=== PATIENT | male | born 1975 | race Two or more races ===

== ENCOUNTER 2020-08-23 08:04 | Outpatient (REF) | payer OTHER, SELFPAY | END 2020-08-23 08:05 | disposition home or self-care (01) | LOC: HO.LAB 08:04 | PROVIDERS: Visit Provider Internal Medicine | DX: Z20.828 Contact with and (suspected) exposure to other viral communicable diseases (principal) | CPT/HCPCS: C9803; U0003 ==

== ENCOUNTER 2021-10-25 08:05 | Outpatient (REF) | payer OTHER, SELFPAY ==
[2021-10-25 09:23] LABS: Binax Internal Control QC Valid; Binax Now Covid-19 Ag Negative (Negative)
== END 2021-10-25 08:06 | disposition home or self-care (01) ==
LOC: HO.LAB 08:05
PROVIDERS: Visit Provider Internal Medicine
DX: Z20.822 Contact with and (suspected) exposure to COVID-19 (principal)
CPT/HCPCS: 36415; C9803

== ENCOUNTER 2022-12-19 10:30 | Outpatient (REF) | payer OTHER, SELFPAY ==
[2022-12-19 10:43] LABS: MANUAL DIFF FLAG NO
[2022-12-19 12:28] LABS: Basophils Absolute Auto 0.1 X10*3/uL (0.0-0.2); Basophils Percent Auto 1.1 % (0-2); Eosinophils Absolute Auto 0.1 X10*3/uL (0.0-0.4); Eosinophils Percent Auto 1.1 % (0-4); Hematocrit 50.2 % (42.0-52.0); Hemoglobin 15.7 g/dl (14.0-18.0); Imm Gran Abs Auto 0.01 X10*3/uL (0.00-0.03); Imm Gran Pct Auto 0.2 % (0.0-0.4); Lymphocytes Absolute Auto 2.8 X10*3/uL (1.2-4.9); Lymphocytes Percent Auto 43.8 % (20-40); Mean Corpuscular HGB Conc 31.3 g/dl (31.0-36.0); Mean Corpuscular Hemoglobin 24.8 pg (27.0-33.0); Mean Corpuscular Volume 79.3 fL (80.0-98.0); Monocytes Absolute Auto 0.5 X10*3/uL (0.1-1.2); Monocytes Percent Auto 7.8 % (2-11); Neutrophils Absolute Auto 2.9 x10*3/uL (2.0-8.3); Platelet Count 217 X10*3/uL (160-400); Red Blood Count 6.33 X10*6/uL (4.60-5.80); Red Cell Distribution Width 13.5 % (11.0-16.0); White Blood Count 6.3 X10*3/uL (4.8-10.8)
[2022-12-19 12:57] LABS: Alanine Aminotransferase 75 U/L (0-40); Albumin Level 4.3 g/dL (3.5-5.0); Alkaline Phosphatase 87 U/L (39-117); Anion Gap 15 (12-20); Aspartate Amino Transferase 36 U/L (5-37); Bilirubin Total 1.3 mg/dL (0.0-1.0); Blood Urea Nitrogen 12 mg/dL (9-16); Carbon Dioxide 28 mmol/L (22-29); Chloride 106 mmol/L (96-108); Cholesterol 239 mg/dL; Estimated Glomerular Filt Rate > 60; Glucose Fasting 91 mg/dL (60-99); HDL Cholesterol 35 mg/dL; LDL Cholesterol Calculated 171 mg/dl; Potassium 4.6 mmol/L (3.3-5.1); Sodium 144 mmol/L (135-145); Total Protein 6.9 g/dL (6.5-8.0); Triglycerides 169 mg/dL
[2022-12-19 13:01] LABS: Thyroid Stimulating Hormone 0.83 uIU/mL (0.32-4.0)
== END 2022-12-19 10:31 | disposition home or self-care (01) ==
LOC: HO.LAB 10:30
PROVIDERS: PCP Internal Medicine; Visit Provider Internal Medicine
DX: Z00.00 Encounter for general adult medical examination without abnormal findings (principal)
CPT/HCPCS: 36415; 80053; 80061; 84439; 84443; 85025

== ENCOUNTER → 2024-02-23 14:03 | Outpatient (REF) | payer OTHER, SELFPAY | LOC: HO.SL 14:03 | PROVIDERS: PCP Internal Medicine; Visit Provider Internal Medicine | DX: G47.33 Obstructive sleep apnea (adult) (pediatric) (principal) | CPT/HCPCS: 95806 ==

== ENCOUNTER → 2024-02-23 19:00 | Outpatient (BNV) | payer OTHER, SELFPAY | PROVIDERS: PCP Internal Medicine; Visit Provider Internal Medicine | DX: G47.33 Obstructive sleep apnea (adult) (pediatric) (principal) | CPT/HCPCS: 95806 ==

== ENCOUNTER → 2024-02-24 08:25 | Outpatient (REF) | payer OTHER, SELFPAY ==
--- NOTE | 2024-02-24 08:27 | CA_ITS ---
Acquisition Time: 2024-02-24 08:48:04 Total Exercise Time: 00:09:30 Test Indications: ABN. EKG Medications: NONE Protocol: VANE Max HR: 153 BPM 87% of Pred: 174 BPM Max BP: 194/058 mmHG Max Work Load: 10.9 METS Exercise stress test exercise 9 min 30 sec of Vane protocol achieving 87% MPHR, without anginal symptoms. with isolated PVCs and ventricular cuplet, with normotensive response to exercise, with baseline of t wave inversion lead 3, aVF, and V6 and T wave inversion in V5 in late recovery. Test reviewed with Dr. Dalton. Referred By: Zaid Cruz Overread By: Tiffanie Gonzalez
[2024-02-24 09:28] LABS: MANUAL DIFF FLAG NO
[2024-02-24 10:05] LABS: Basophils Absolute Auto 0.1 X10*3/uL (0.0-0.2); Eosinophils Absolute Auto 0.1 X10*3/uL (0.0-0.4); Eosinophils Percent Auto 1.8 % (0-4); Hemoglobin 14.6 g/dl (14.0-18.0); Imm Gran Abs Auto 0.01 X10*3/uL (0.00-0.03); Imm Gran Pct Auto 0.2 % (0.0-0.4); Lymphocytes Absolute Auto 2.7 X10*3/uL (1.2-4.9); Lymphocytes Percent Auto 54.3 % (20-40); Mean Corpuscular HGB Conc 31.7 g/dl (31.0-36.0); Mean Corpuscular Hemoglobin 25.2 pg (27.0-33.0); Mean Corpuscular Volume 79.4 fL (80.0-98.0); Mean Platelet Volume 10.7 fL (9.4-12.4); Monocytes Absolute Auto 0.5 X10*3/uL (0.1-1.2); Monocytes Percent Auto 9.1 % (2-11); Neutrophils Absolute Auto 1.7 x10*3/uL (2.0-8.3); Neutrophils Percent Auto 33.6 % (45-73); Platelet Count 184 X10*3/uL (160-400); Red Blood Count 5.79 X10*6/uL (4.60-5.80); Red Cell Distribution Width 14.2 % (11.0-16.0)
[2024-02-24 10:37] LABS: Alanine Aminotransferase 164 U/L (0-40); Albumin Level 4.2 g/dL (3.5-5.0); Alkaline Phosphatase 70 U/L (39-117); Anion Gap 16 (12-20); Aspartate Amino Transferase 76 U/L (5-37); Bilirubin Total 0.8 mg/dL (0.0-1.0); Blood Urea Nitrogen 15 mg/dL (9-16); C Reactive Protein 0.46 mg/dL (< or = 0.50); Calcium 9.3 mg/dL (8.4-10.2); Carbon Dioxide 25 mmol/L (22-29); Chloride 106 mmol/L (96-108); Cholesterol 172 mg/dL (<200); Estimated Glomerular Filt Rate > 60; Glucose Random 90 mg/dL (60-115); HDL Cholesterol 34 mg/dL (>40); LDL Cholesterol Calculated 115 mg/dL (<100); Sodium 143 mmol/L (135-145); Total Protein 7.3 g/dL (6.5-8.0); Triglycerides 116 mg/dL (<150)
[2024-02-24 11:01] LABS: Thyroid Stimulating Hormone 0.65 uIU/mL (0.32-4.0)
[2024-02-25 17:53] LABS: Lyme Abs Screen <0.90 index
== END ==
LOC: HO.CARD 08:25
PROVIDERS: PCP Internal Medicine; Visit Provider Internal Medicine
DX: Z13.6 Encounter for screening for cardiovascular disorders (principal); T14.8XXA Other injury of unspecified body region, initial encounter; W57.XXXA Bitten or stung by nonvenomous insect and other nonvenomous arthropods, initial encounter; R94.31 Abnormal electrocardiogram [ECG] [EKG]
CPT/HCPCS: 36415; 80053; 80061; 84443; 85025; 86140; 86617; 86618; 93017

== ENCOUNTER → 2024-02-24 08:27 | Outpatient (BNV) | payer OTHER, SELFPAY | PROVIDERS: PCP Internal Medicine; Visit Provider Nurse Practitioner | DX: R94.31 Abnormal electrocardiogram [ECG] [EKG] (principal) | CPT/HCPCS: 93016; 93018 ==

== ENCOUNTER 2024-07-22 07:14 | Outpatient (AMB) | payer OTHER, SELFPAY ==
--- NOTE | 2024-07-22 07:18 | A.OFFVIS_ITS ---
Vital Signs 07/22/24 07:39 Height 5 ft 11 in Weight 253 lb BMI 35.3 BP 147/86 H Blood Pressure Location Lt brachial Position Sitting Pulse 92 Intake Visit Reasons: pre colonoscopy Intake Note: Patient new consult for 1st pre colonoscopy screening. Patient cc: acid reflex with burning sensation and nauseas in the morning after wash his teeth. Denies any other GI issues. Entry Engineer Required: No Accompanied by: Self / Same As Patient Allergies shellfish derived [SHELLFISH DERIVED] Allergy (Unknown, Verified 07/22/24 07:19) HIVES, ITCHY Medication List - Last Reconciled 07/22/24 by Tong Moe MD No Known Home Meds HPI HPI pre colonoscopy: Details: Initial GI clinic visit for this 48 YM with hypertension, hyperlipidemia, low back pain referred by Dr. Duncan Cruz for evaluation of elevated LFTs, GERD and to schedule a colonoscopy for colorectal cancer screening TODAY'S VISIT: Notes intermittent heartburn in the afternoon and at bedtime - no medications for heartburn. He notes frequent heartburn in the past for several years and symptoms have improved over the past several months Notes some nausea in the am when he brushes his teeth Patient denies symptoms of dysphagia, vomiting, change in appetite or weight. Denies recent change in bowel habits, constipation, diarrhea, black stools or rectal bleeding. Patient denies major cardiac or pulmonary problems, and admits to obstructive sleep apnea (he was on a CPAP machine in the past) Denies having any surgeries in the past. Denies being on chronic anticoagulation. 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 PAST [facility] Reviewed - elevated transaminases IMAGING STUDIES: None in [employer] [facility] Family History (Updated 07/22/24 @ 07:51 by Rachell Hartmann) Mother HTN (hypertension) Diabetes Malignant melanoma of breast Social History (Updated 07/22/24 @ 07:34 by Rachell Hartmann) Household Members: Family Alcohol intake: never Patient Tobacco Use Status: Never used Tobacco Review of Systems Const Denies fever(s), Denies headache(s) and Denies weight loss Eyes Denies eye discharge and Denies irritation ENT Reports Normal hearing present, Denies dysphagia, Denies dizziness and Denies headache(s) Card Denies chest pain, Denies leg edema and Denies dyspnea on exertion Resp Denies cough, Denies dyspnea on exertion and Denies wheezing GI Denies abdominal pain, Reports bloating, Denies change in bowel habits, Denies dysphagia, Reports heartburn and Reports nausea (in the am) Denies dysuria Musc Denies back pain and Denies arthralgias Skin/Breast Denies pruritus, Denies rash and Denies jaundice Neuro Reports Normal hearing present, Denies Abnormal speech present, Denies dizziness, Denies headache(s) and Denies seizure-like activity Psych Denies anxiety, Denies depression and Denies panic attacks Endo Denies cold intolerance, Denies flushing and Denies heat intolerance Cortes/Lymph Denies easy bleeding and Denies easy bruising Aller/Immun Denies wheezing Physical Exam Vital Signs: Last Vital Signs Pulse 92 07/22/24 07:39 BP 147/86 H 07/22/24 07:39 BMI result Body Mass Index 35.3 Const General: healthy appearing and no acute distress Nutritional Appearance: obese Orientation/consciousness: patient oriented x3 Limitations: no limitations HEENT Head: Yes normal to inspection Ears: hearing grossly normal bilaterally Mouth: Normal oral and palatal mucosa present Eyes Sclerae: sclerae normal Pupils: Equal, round and reactive pupils present Neck Neck: Yes normal visual inspection Chest Chest palpation & inspection: normal inspection of the chest Resp Effort & Inspection: normal respiratory effort Auscultation: clear to auscultation bilaterally Cardio Palpation: normal PMI Rate: regular rate Rhythm: regular rhythm Heart sounds: S1 normal heart sound present, S2 normal heart sound present and no murmurs GI Palpation (GI): Soft to palpation, nontender and No hepatosplenomegaly present Auscultation: normal bowel sounds Rectal Exam - Male: Yes deferred Skin General skin exam: no rashes or lesions noted Neuro General: patient oriented x3, gait normal and moves all extremities Cranial nerves: Yes Equal, round and reactive pupils present and Yes Normal hearing present Speech: No Abnormal speech present Psych Appearance: grossly normal Mental Status: mental status grossly normal Assessment & Plan Assessment & Plan (1) Colon cancer screening: Comment: schedule colonoscopy Code(s): Z12.11 - Encounter for screening for malignant neoplasm of colon Category: Medical (2) Elevated LFTs: Comment: Likely due to fatty liver Code(s): R79.89 - Other specified abnormal findings of blood chemistry Category: Medical Plan Initial GI clinic visit for this 48 YM with hypertension, hyperlipidemia, low back pain referred by Dr. Duncan Cruz for evaluation of elevated LFTs, GERD and to schedule a colonoscopy for colorectal cancer screening Patient denies major cardiac or pulmonary problems, and admits to obstructive sleep apnea (he was on a CPAP machine in the past) Denies having any surgeries in the past. Denies being on chronic anticoagulation. Takes Alleve occasionally fot toothache Patient denies known family history of colon polyps, colon cancer or other GI malignancies. Pt advised to follow antireflux pre-cautions and work on loosing weight. Start Famotidine 20 mg twice daily for GERD Repeat liver panel, Hepatitis serologies and abdominal US for FU of elevated LFTs He will be scheduled for an upper endoscopy (GERD and screen for Juarez's) and Colonoscopy (screening) Both procedures and potential complication including bleeding, perforation, reaction to anesthetics and aspiration were reviewed with the patient. Orders: Orders US abdomen complete Today R7. - Other specified abnormal findings of blood chemistry Complete Blood Count no Diff Today R7 - Other specified abnormal findings of blood chemistry Transglutaminase IgA Today R7. - Other specified abnormal findings of blood chemistry Transglutaminase Ab IgG Today R7. - Other specified abnormal findings of blood chemistry Hepatitis A IgG Today R7. - Other specified abnormal findings of blood chemistry Vitamin D 25-OH Total Today R7. - Other specified abnormal findings of blood chemistry Vitamin B12 and Folate Today R7. - Other specified abnormal findings of blood chemistry Liver Panel Today - Other specified abnormal findings of blood chemistry Hepatitis C Antibody Today . - Other specified abnormal findings of blood chemistry Hepatitis B Surface Antigen Today R7. - Other specified abnormal findings of blood chemistry Hepatitis B Surface Antibody Today R7. - Other specified abnormal findings of blood chemistry Hepatitis B Core Antibody Today R7. - Other specified abnormal findings of blood chemistry Medications: New bisacodyl (Dulcolax (bisacodyl)) Take 4 tablets at 12 pm the day before colonoscopy appointment 20 mg (4 x 5 mg) PO ONCE 4 tabs 0RF colon prep 1 day polyethylene glycol 3350 (Miralax) Mix Miralax with 64 oz(8 cups) of Crystal light. Take 2 tablets of Dulcolax qt 12 pm. Wait to have your 1st bowel movement, then begin drinking Miralax. Drink a glass of Miralax every 10-15 minutes until you are finished. You will drink at least another 4 cups of clear liquid of your choice over the next 2 hours. Please drink as many clear liquids as possible You may have clear liquids up to four hours before your procedure 17 grams PO DAILY 238 grams 0RF 1 day famotidine 20 mg PO BID 180 tabs 1RF 90 days K21.9 - Gastro-esophageal reflux disease without esophagitis Coding Level of Care Code New Pt Level 4 (05603) Diagnoses Colon cancer screening Z12.11 Elevated LFTs R79.89 Time Spent (min) 25
[2024-07-22 07:39] VITALS: BP 147/86; PULSE 92; BMI 35.3
== END 2024-07-22 08:13 | disposition home or self-care (01) ==
PROVIDERS: PCP Internal Medicine; Visit Provider Internal Medicine Gastroenterology
DX: Z12.11 Encounter for screening for malignant neoplasm of colon (principal); R79.89 Other specified abnormal findings of blood chemistry; Z01.818 Encounter for other preprocedural examination
CPT/HCPCS: 99204

== ENCOUNTER 2024-07-22 07:14 | Outpatient (REF) | payer OTHER, SELFPAY ==
[2024-07-22 08:47] LABS: Hematocrit 46.9 % (42.0-52.0); Hemoglobin 15.2 g/dl (14.0-18.0); Mean Corpuscular HGB Conc 32.4 g/dl (31.0-36.0); Mean Corpuscular Hemoglobin 25.4 pg (27.0-33.0); Mean Corpuscular Volume 78.4 fL (80.0-98.0); Mean Platelet Volume 10.7 fL (9.4-12.4); Platelet Count 181 X10*3/uL (160-400); Red Blood Count 5.98 X10*6/uL (4.60-5.80); Red Cell Distribution Width 13.9 % (11.0-16.0); White Blood Count 5.5 X10*3/uL (4.8-10.8)
[2024-07-22 09:25] LABS: Alanine Aminotransferase 90 U/L (0-40); Albumin Level 4.2 g/dL (3.5-5.0); Alkaline Phosphatase 83 U/L (39-117); Aspartate Amino Transferase 41 U/L (5-37); Bilirubin Direct 0.3 mg/dL (0.0-0.5); Total Protein 7.3 g/dL (6.5-8.0)
[2024-07-22 09:36] LABS: Hepatitis A Antibody IgG REACTIVE (Nonreactive); ~Hepatitis A Antibody IgG 11.01 S/CO (0.00-0.99)
[2024-07-22 09:40] LABS: HBS Num1 397.83 mIU/mL (0-7.99); HBsAGNum1 0.34 S/CO (0.00-0.99); Hepatitis B Core Antibody Nonreactive (Nonreactive); Hepatitis B Surface Antigen Negative (Negative); ~HepC Num1 0.12 S/CO (0.00-0.79); ~Hepatitis B Surface Antibody REACTIVE (Nonreactive); ~Hepatitis C Antibody Nonreactive (Nonreactive)
[2024-07-22 09:42] LABS: Vitamin D 25-OH Total 28.3 ng/mL (>30)
[2024-07-22 09:52] LABS: Folate 9.3 ng/mL (> or = 4.0); Vitamin B12 426 pg/mL (200-900)
[2024-07-25 17:18] LABS: Transglutaminase Ab IgG <1.0 U/mL; Transglutaminase IgA <1.0 U/mL
== END 2024-07-22 07:15 | disposition home or self-care (01) ==
LOC: HO.LAB 07:14
PROVIDERS: PCP Internal Medicine; Visit Provider Internal Medicine Gastroenterology
DX: R79.89 Other specified abnormal findings of blood chemistry (principal)
CPT/HCPCS: 36415; 80076; 82306; 82607; 82746; 85027; 86364; 86704; 86706; 86708; 86803; 87340

== ENCOUNTER 2024-08-04 08:11 | Outpatient (REF) | payer OTHER, SELFPAY ==
--- NOTE | ~2024-08-04 | US_ITS ---
EXAMINATION: US ABDOMEN COMPLETE CLINICAL INFORMATION: Other specified abnormal findings of blood chemistry. Evaluate for fatty liver. COMPARISON: None available. TECHNIQUE: Real-time imaging of the abdominal viscera. FINDINGS: PANCREAS: The visualized portions of the pancreas are unremarkable but a large portion of the gland is obscured by bowel gas. ABDOMINAL AORTA: No aneurysm seen but the mid aorta is obscured by bowel gas. INFERIOR VENA CAVA: Visualized portions are normal. LIVER: The liver is enlarged measuring over 20 cm in greatest length with increased echogenicity consistent with hepatic steatosis. The liver contour is normal. No focal hepatic lesion. There is no intrahepatic biliary duct dilatation seen. GALLBLADDER: Normal. The gallbladder is physiologically distended without evidence of stones, sludge, polyps, wall thickening or pericholecystic fluid. COMMON BILE DUCT: Normal in caliber measuring 0.4 cm in diameter. RIGHT KIDNEY: Normal. No hydronephrosis. No renal calculi or focal parenchymal lesions. The kidney measures 11.1 cm in maximum dimension. LEFT KIDNEY: Normal. No hydronephrosis. No renal calculi or focal parenchymal lesions. The kidney measures 11.2 cm in maximum dimension. SPLEEN: Normal. The spleen measures 9.7 cm in maximum dimension. FREE FLUID: None. US/US abdomen complete IMPRESSION: Enlarged fatty liver. Electronically signed by: Surya Reyes MD 10/01/2024 12:24 PM PRAVIN
== END 2024-08-04 08:12 | disposition home or self-care (01) ==
LOC: HO.US 08:11
PROVIDERS: PCP Internal Medicine; Visit Provider Internal Medicine Gastroenterology
DX: R79.89 Other specified abnormal findings of blood chemistry (principal)
CPT/HCPCS: 76700

== ENCOUNTER 2024-12-19 07:38 | Day surgery (SDC) | payer OTHER, SELFPAY ==
--- NOTE | 2024-12-16 10:20 | HO.ANESPROP2 ---
Documented by User: Dorcas Roblero NP 12/16/24 10:20 HPI - Anesthesia Eval Consult details Narrative: 49yo M for Upper Endoscopy and Colonoscopy PMF Active Problems Active Problems: All Active Problems Colon cancer screening (Acute) Elevated LFTs (Acute) Chronic kidney disease, stage 1 (Acute) Obstructive sleep apnea (Acute) Low back pain (Acute) Tenosynovitis of left hand (Acute) Tenosynovitis of right hand (Acute) Hypercholesterolemia (Acute) Hypertension (Acute) Family History Family History Mother HTN (hypertension) Diabetes Malignant melanoma of breast Social History Social History Household Members: Family Alcohol intake: never Patient Tobacco Use Status: Never used Tobacco Meds Allergies Allergy/AdvReac Type Severity Reaction Status Date / Time shellfish derived Allergy Unknown HIVES, Verified 12/19/24 08:20 [SHELLFISH DERIVED] ITCHY Assessment and Plan Assessment Anesthesia Assessment: Chart Reviewed Documented by User: Kristi Vidal MD 12/19/24 08:57 [facility] Family History Family History Mother HTN (hypertension) Diabetes Malignant melanoma of breast Surgical History History of Problems with Anesthesia: No Social History Social History Household Members: Family Alcohol intake: never Patient Tobacco Use Status: Never used Tobacco Meds Allergies Allergy/AdvReac Type Severity Reaction Status Date / Time shellfish derived Allergy Unknown HIVES, Verified 12/19/24 08:20 [SHELLFISH DERIVED] ITCHY Exam Airway Mallampati Class: III (full garcia) TM Dist: >3cm Neck ROM: Full Loose/Missing/Broken Teeth: Yes and Upper Heart: RRR Lungs: CTA Assessment and Plan Assessment Anesthesia Assessment: Anesthesia Plan Discussed Final Anesthetic Review History of Problems with Anesthesia: No NPO: Yes ASA Class: III Final Preanesthetic Review: Meds/Allgs Chart Reviewed, Consent Obtained/Reviewed and Anes Risks/Benef Reviewed Patient Risk: Intermediate Procedure Risk: Intermediate Anesthetic Plan Anesthetic Plan: MAC: Disposition: Standard PACU
--- NOTE | 2024-12-19 08:35 | MHC.SHP ---
Pre-Procedural Eval Section A - 24 Hr Update-Section A only Date of Service: 12/19/24 Section B - Complete if H&P > 30 days Chief Complaint: gerd,screening Relevant Family History (Specify if Yes): No Relevant Social History: None Present Medications: see Short Stay Collaborative assessment Medical History: Significant History (Hypercholesterolemia, hypertension, low back pain, obstructive sleep apnea) History of Previous Operations: No relevant previous surgery Allergies: Allergies Allergy/AdvReac Type Severity Reaction Status Date / Time shellfish derived Allergy Unknown HIVES, Verified 12/19/24 08:20 [SHELLFISH DERIVED] ITCHY Review of Systems Sugical H&P ROS: Negative: Constitution, Cardiovascular, Respiratory and Gastrointestinal Exam Surgical H&P Exam: Normal: Heart, Normal: Lungs, Normal: Extremities and Normal: Abdomen Plan Diagnosis/Plan: Unchanged I have reviewed the history and physical and performed a pertinent physical examination on my patient. No changes have occurred unless specified. Time Spent With Patient Time: Total time managing care of this patient today ____ minutes.
[2024-12-19 08:37] VITALS: BP 136/95; PULSE 92; RESP 16; TEMP 36.6; O2SAT 95; BMI 37.9
--- NOTE | 2024-12-19 08:51 | P.OPN-COLO_ITS ---
Colonoscopy Operative Note Operative Note Date of Service: 12/19/24 Narrative: FLEXIBLE TRANSORAL UPPER GASTROINTESTINAL ENDOSCOPY WITH BIOPSIES AND COLONOSCOPY TILL CECUM WITH SNARE POLYPECTOMY Pre-op diagnosis: Colon cancer screening, GERD Post-op diagnosis: Esophagitis, Gastritis, Hiatal hernia, Colon Polyps, Diverticulosis, hemorrhoids Endoscopist:? Tong Moe MD Anesthesia:?MAC UPPER ENDOSCOPY Consent: Indications for the procedure and potential complications of bleeding, perforation, reaction to medications and missed diagnosis were discussed with the patient and informed consent was obtained. Instrument: Olympus GIF H 190 mid size upper endoscope Monitoring: Vital signs and clinical assessment, continuous EKG monitoring, Pulse oximetry, Carbon Dioxide monitoring and blood pressure monitoring were done throughout the procedure. Procedure: The patient was placed in the left lateral decubitis position and pre-procedure medications were administered and a bite block was placed. The endoscope was inserted into the mouth and advanced under direct vision to the third part of duodenum. A careful inspection was made as the upper endoscope was withdrawn including a retroflexed examination of the proximal stomach; Findings and interventions are described below. Findings: Larynx: Normal Esophagus: GE junction at 35 cms, hiatal hernia 35 to 40 cms. Multiple chronic appearing erosions at the GE junction (LA Grade B). Stomach: Moderate diffuse gastric erythema - biopsies were obtained from the antrum. Grade 3 flap valve on retroflexed examination of the cardia. Duodenum: Normal bulb and descending duodenum Intervention: Biopsies as noted above COLONOSCOPY PROCEDURE NOTE Instrument: Olympus CF H 190 L variable stiffness adult colonoscope Monitoring: Vital signs and clinical assessment, intermittent blood pressure monitoring, continuous EKG monitoring, Pulse oximetry and Carbon Dioxide monitoring were done throughout the procedure. Please see anesthesia flowsheet. Colon withdrawl time was 12 minutes. Procedure: The patient was placed in the left lateral decubitis position and pre-procedure medications were administered. After a digital rectal examination of the ano-rectum, the video colonoscope was inserted into the rectum and advanced through the colon to the cecum. The colonoscope was slowly withdrawn in a retrograde panoramic fashion and the colon mucosa was carefully examined including a retroflexed view of the rectum. Findings and interventions are described below. Procedure Difficulty: without difficulty Findings: Terminal Ileum: Not evaluated Cecum: Normal Ascending Colon: A 5-6 mm sessile polyp in the proximal ascending colon - removed with a cold snare Transverse Colon: A 7-8 mm sessile polyp - removed with cold snare. A 10-12 mm sessile polyp - removed with hot snare Descending Colon: Normal Sigmoid Colon: A 7-8 mm sessile polyp - removed with a hot snare. Moderate diverticulosis Rectum: Normal Ano-rectum: Moderate internal hemorrhoids Colon preparation: Good after some irrigation. [place] Bowel Preparation Scale Right colon; 2 Transverse colon: 2 Left colon; 2 (0 = Unprepared colon segment with mucosa not seen due to solid stool that cannot be cleared. 1 = Portion of mucosa of the colon segment seen, but other areas of the colon segment not well seen due to staining, residual stool and/or opaque liquid. 2 = Minor amount of residual staining, small fragments of stool and/or opaque liquid, but mucosa of colon segment seen well. 3 = Entire mucosa of colon segment seen well with no residual staining, small fragments of stool or opaque liquid) Impression and Post Procedure Diagnosis: Endoscopy Findings: ESOPHAGUS: Hiatal hernia, Erosive esophagitis (LA Grade B). STOMACH: Moderate diffuse gastritis DUODENUM: Normal Colonoscopy Findings: Four small to medium sized polyps were removed Moderate diverticulosis seen in the left colon Moderate hemorrhoids on retroflexed exam. Plan: Pt has a FU appointment on 01/12/[address] Moe Repeat EGD in 4 - 6 months to confirm esophagitis has healed and repeat colonoscopy in 3-5 years if polyps are adenomatous and 10 year if polyps are hyperplastic. Above findings were reviewed with the patient and relevant handouts were given and the discharge area. BIOPSIES SHOWED: A. Stomach, antrum, biopsy: Gastric antral mucosa within normal limits; negative for Helicobacter pylori, intestinal metaplasia and dysplasia. B. Colon, ascending, polypectomy: Tubular adenoma; negative for high-grade dysplasia. C. Colon, transverse, polypectomy x 2: Tubular adenoma (2); negative for high- grade dysplasia. D. Colon, sigmoid, polypectomy: Tubular adenoma; negative for high-grade dysplasia. Letter sent advising repeat EGD in 4-6 months and repeat colon in 3 years. Patient was placed on the colonoscopy recall list.
[2024-12-19 09:25] VITALS: BP 123/77; PULSE 96; RESP 18; TEMP 36.1; O2SAT 97
[2024-12-19 09:40] VITALS: BP 126/81; PULSE 100; RESP 18; O2SAT 97
[2024-12-19 09:47] VITALS: BP 116/82; PULSE 92; RESP 18; TEMP 36.6; O2SAT 97
== END 2024-12-19 10:21 | disposition home or self-care (01) ==
PROVIDERS: PCP Internal Medicine; Visit Provider Internal Medicine Gastroenterology
PROC: (CPT 45385; principal; 2024-12-19 08:30)
DX: Z12.11 Encounter for screening for malignant neoplasm of colon (principal); D12.2 Benign neoplasm of ascending colon; D12.3 Benign neoplasm of transverse colon; D12.5 Benign neoplasm of sigmoid colon; K57.30 Diverticulosis of large intestine without perforation or abscess without bleeding; K64.8 Other hemorrhoids; K21.9 Gastro-esophageal reflux disease without esophagitis; K20.80 Other esophagitis without bleeding; K44.9 Diaphragmatic hernia without obstruction or gangrene
CPT/HCPCS: 45385; 43239; 88305; 88313; 88342; J2003; J2704

== ENCOUNTER → 2024-12-19 07:38 | Outpatient (BNV) | payer OTHER, SELFPAY | PROVIDERS: PCP Internal Medicine; Visit Provider Internal Medicine Gastroenterology | DX: Z12.11 Encounter for screening for malignant neoplasm of colon (principal); D12.2 Benign neoplasm of ascending colon; D12.3 Benign neoplasm of transverse colon; D12.5 Benign neoplasm of sigmoid colon; K21.00 Gastro-esophageal reflux disease with esophagitis, without bleeding | CPT/HCPCS: 43239; 45385 ==

== ENCOUNTER 2025-01-06 09:15 | Outpatient (AMB) | payer OTHER, SELFPAY ==
--- NOTE | 2025-01-06 09:19 | MHC.PC.OV ---
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 Need in lab cpap titration Has gained weight increasing snoring, joint pain ROS see HPI PHYSICAL EXAM: GENERAL: Alert and oriented x 3. NAD EYES: EOMI. Anicteric. HENT: Moist mucous membranes. No scleral icterus. No cervical lymphadenopathy. LUNGS: Clear to auscultation bilaterally. CARDIOVASCULAR: Regular rate and rhythm. No murmur. No JVD. ABDOMEN: Soft, non-tender +bs EXTREMITIES: No edema. Non-tender. SKIN: No rashes or lesions. Warm. NEUROLOGIC: No focal neurological deficits. CN II-XII grossly intact PSYCHIATRIC: Cooperative. Appropriate mood and affect [facility] Surgical History History of esophagogastroduodenoscopy (EGD) Hx of colonoscopy Family History Mother HTN (hypertension) Diabetes Malignant melanoma of breast Social History Household Members: Family Housing: House Alcohol intake: never Patient Tobacco Use Status: Never used Tobacco service: Yes Current occupational status: employed Cognitive needs: No Hearing needs: No Vision needs: No Questionnaire PHQ-9 Over the last 2 weeks, how often have you been bothered by any of the following problems? 1. Little interest or pleasure in doing things: not at all 2. Feeling down, depressed, or hopeless: not at all 3. Trouble falling or staying asleep, or sleeping too much: not at all 4. Feeling tired or having little energy: not at all 5. Poor appetite or overeating: not at all 6. Feeling bad about yourself - or that you are a failure or have let yourself or your family down: not at all 7. Trouble concentrating on things, such as reading the newspaper or watching television: not at all 8. Moving or speaking so slowly that other people could have noticed. Or the opposite - being so fidgety or restless that you have been moving around a lot more than usual: not at all 9. Thoughts that you would be better off or of hurting yourself in some way: not at all Total score: 0 Depression Screening Interpretation: Negative Depression Screening Done: Yes 98649 - PHQ-9 Billing: Yes Source: Developed by Drs. Ananda Hansen, Cherelle Sloan, Abel Wright and colleagues, with an educational ubaldo from [employer]. Thrive Questionnaire Date Thrive assessed: 01/06/25 I am a: Patient What is your living situation today?: I have a steady place to live Within the past 12 months, did the food you bought not last and you didn't have the money to get more?: Never true Within the past 12 months, did you worry whether your food would run out before you got money to buy more?: Never true Do you have trouble paying for medicines?: No Do you have trouble getting transportation to medical appointments?: No Do you have trouble paying your heating and electricity bill?: No Do you have trouble taking care of your child, family member or friend?: No Do you have trouble with day-to-day activities such as bathing, preparing meals, shopping, managing finances, etc.?: No Are you currently unemployed and looking for a job?: No Are you interested in more education?: No THRIVE Score: 0 AUDIT C Alcohol Use Questionnaire (AUDIT-C) 1. How often do you have a drink containing alcohol?: Never 3. How often do you have six or more drinks on one occasion?: Never Total Score: 0 ULI-7 AMB Questionnaire ULI-7 Date ULI - 7 assessed: 01/06/25 Feeling nervous, anxious, or on edge: 0 = Not at all Not being able to stop or control worryin = Not at all Worrying too much about different things: 0 = Not at all Trouble relaxin = Not at all Being so restless that it is hard to sit still: 0 = Not at all Becoming easily annoyed or irritable: 0 = Not at all Feeling afraid as if something awful might happen: 0 = Not at all Total ULI-7 score (0-4 normal; 5-9 mild; 10-14 moderate; 15-21 severe): 0 Source: Developed by Drs. Ananda Hansen, Cherelle Sloan, Abel Wright and colleagues, with an educational ubaldo from [employer]. Physical exam (Primary Care) Vital Signs: Last Vital Signs Temp 97.8 F 01/06/25 09:22 Pulse 86 01/06/25 09:22 BP 152/88 H 01/06/25 09:22 Pulse Ox 96 01/06/25 09:22 Oxygen Delivery Method Room Air 01/06/25 09:22 BMI result Body Mass Index 35.3 Tobacco/Smoking Status: Tobacco use Status Tobacco use date assessed 01/06/25 01/06/25 09:31 Patient Tobacco Use Status Never used Tobacco 01/06/25 09:31 PHQ-9: PHQ-9 Score PHQ-9: Total score 0 01/08/25 20:11 Depression Screening Interpretation: Negative Thrive Assessment: Date of Thrive Assessment Date Thrive assessed 01/06/25 01/06/25 09:31 Coding Level of Care Code New Pt Level 4 (38627) Complex EM visit Add On G2211 Diagnoses Severe obstructive sleep apnea G47.33 Obesity (BMI 35.0-39.9 without comorbidity) E66.9 Hypertension I10 Additional Codes PHQ-9 - 80959 - PHQ-9 Billing: Yes ([id number]) Assessment & Plan Assessment & Plan (1) Severe obstructive sleep apnea: Code(s): G47.33 - Obstructive sleep apnea (adult) (pediatric) Category: Medical (2) Obesity (BMI 35.0-39.9 without comorbidity): Code(s): E66.9 - Obesity, unspecified Category: Medical (3) Hypertension: Code(s): I10 - Essential (primary) hypertension Category: Medical Plan [place]-referral for in lab titration, sleep medicine Obesity, [place]-trial zepbound Fatigue-likely 2/2 [place]. Check labs Orders: Orders Pathologist Review - CBC 01/06/25 I10 - Essential (primary) hypertension, R79.89 - Other specified abnormal findings of blood chemistry Complete Blood Count Auto Diff 01/06/25 I10 - Essential (primary) hypertension, R79.89 - Other specified abnormal findings of blood chemistry RT PSG in-lab sleep study 01/06/25 G47.33 - Obstructive sleep apnea (adult) (pediatric) Hemoglobin A1c 01/06/25 R63.5 - Abnormal weight gain Referrals Sleep Medicine Referral G47.33 - Obstructive sleep apnea (adult) (pediatric) Medications: New Zepbound (tirzepatide (weight loss)) for 4 weeks 2.5 mg (0.5 mL) subcut QWEEK 2 mL 0RF NS E66.9 - Obesity, unspecified, G47.33 - Obstructive sleep apnea (adult) (pediatric)
[2025-01-06 09:22] VITALS: BP 152/88; PULSE 86; TEMP 36.6; O2SAT 96; BMI 35.3
== END 2025-01-06 10:11 | disposition home or self-care (01) ==
LOC: HO.HMCHD 09:16
PROVIDERS: PCP Internal Medicine; Visit Provider Internal Medicine
DX: G47.33 Obstructive sleep apnea (adult) (pediatric) (principal); E66.9 Obesity, unspecified; I10 Essential (primary) hypertension

== ENCOUNTER → 2025-01-06 09:15 | Outpatient (BNVA) | payer OTHER, SELFPAY | PROVIDERS: PCP Internal Medicine; Visit Provider Internal Medicine ==

== ENCOUNTER 2025-01-06 10:01 | Outpatient (REF) | payer OTHER, SELFPAY ==
[2025-01-06 13:20] LABS: MANUAL DIFF FLAG NO
[2025-01-06 13:33] LABS: Basophils Absolute Auto 0.1 X10*3/uL (0.0-0.2); Basophils Percent Auto 1.2 % (0-2); Eosinophils Absolute Auto 0.1 X10*3/uL (0.0-0.4); Eosinophils Percent Auto 1.2 % (0-4); Hematocrit 50.3 % (42.0-52.0); Hemoglobin 15.6 g/dl (14.0-18.0); Imm Gran Abs Auto 0.01 X10*3/uL (0.00-0.03); Imm Gran Pct Auto 0.2 % (0.0-0.4); Lymphocytes Absolute Auto 2.6 X10*3/uL (1.2-4.9); Lymphocytes Percent Auto 45.5 % (20-40); Mean Corpuscular Hemoglobin 24.5 pg (27.0-33.0); Mean Corpuscular Volume 79.1 fL (80.0-98.0); Mean Platelet Volume 10.6 fL (9.4-12.4); Monocytes Absolute Auto 0.5 X10*3/uL (0.1-1.2); Monocytes Percent Auto 8.6 % (2-11); Neutrophils Absolute Auto 2.5 x10*3/uL (2.0-8.3); Neutrophils Percent Auto 43.3 % (45-73); Platelet Count 210 X10*3/uL (160-400); Red Blood Count 6.36 X10*6/uL (4.60-5.80); Red Cell Distribution Width 14.6 % (11.0-16.0); White Blood Count 5.7 X10*3/uL (4.8-10.8)
[2025-01-06 13:51] LABS: Estimated Average Glucose 137 mg/dL; Hemoglobin A1c % 6.4 % (<6.0)
== END 2025-01-06 10:02 | disposition home or self-care (01) ==
LOC: HO.10HDL 10:01
PROVIDERS: Visit Provider Internal Medicine
DX: G47.33 Obstructive sleep apnea (adult) (pediatric) (principal); E66.9 Obesity, unspecified; Z68.35 Body mass index [BMI] 35.0-35.9, adult; I10 Essential (primary) hypertension; R79.89 Other specified abnormal findings of blood chemistry
CPT/HCPCS: 83036; 85025; 96127

== ENCOUNTER 2025-01-12 11:08 | Outpatient (AMB) | payer OTHER, SELFPAY ==
--- NOTE | 2025-01-12 11:32 | MHC.OFFVIS ---
Vital Signs 01/12/25 12:11 Height 5 ft 11 in Weight 255 lb BMI 35.6 BP 128/68 Blood Pressure Location Lt brachial Position Sitting Pulse 75 Pulse Oximetry (%) 99 Oxygen Delivery Method Room Air Intake Visit Reasons: s/p egd/colon Intake Note: Patient follow up for EGD/Colonoscopy, lab and abd US results. patient denies any GI issues for today visit. 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 Duncan Cruz for evaluation of elevated LFTs, GERD and to schedule a colonoscopy for colorectal cancer screening TODAY'S VISIT: Patient follow up for EGD/Colonoscopy, lab and abd US results. patient denies any GI issues for today visit. EGD and colon results were reviewed. PAST VISITS: Notes intermittent heartburn in the afternoon and at bedtime - no medications for heartburn. He notes frequent heartburn in the past for several years and symptoms have improved over the past several months Notes some nausea in the am when he brushes his teeth Patient denies symptoms of dysphagia, vomiting, change in appetite or weight. Denies recent change in bowel habits, constipation, diarrhea, black stools or rectal bleeding. Patient denies major cardiac or pulmonary problems, and admits to obstructive sleep apnea (he was on a CPAP machine in the past) Denies having any surgeries in the past. Denies being on chronic anticoagulation. 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 EGD/COLONOSCOPY: 12/19/24 EGD AND COLON SHOWED: Endoscopy Findings: ESOPHAGUS: Hiatal hernia, Erosive esophagitis (LA Grade B). STOMACH: Moderate diffuse gastritis DUODENUM: Normal Colonoscopy Findings: Four small to medium sized polyps were removed Moderate diverticulosis seen in the left colon Moderate hemorrhoids on retroflexed exam. Plan: Repeat EGD in 4 - 6 months to confirm esophagitis has healed and repeat colonoscopy in 3-5 years if polyps are adenomatous and 10 year if polyps are hyperplastic. Above findings were reviewed with the patient and relevant handouts were given and the discharge area. BIOPSIES SHOWED: A. Stomach, antrum, biopsy: Gastric antral mucosa within normal limits; negative for Helicobacter pylori, intestinal metaplasia and dysplasia. B. Colon, ascending, polypectomy: Tubular adenoma; negative for high-grade dysplasia. C. Colon, transverse, polypectomy x 2: Tubular adenoma (2); negative for high-grade dysplasia. D. Colon, sigmoid, polypectomy: Tubular adenoma; negative for high-grade dysplasia. Letter sent advising repeat EGD in 4-6 months and repeat colon in 3 years. Patient was placed on the colonoscopy recall list. LABS IN [facility] : 02/24/24 Reviewed - elevated transaminases IMAGING STUDIES: 08/04/24 ABD US SHOWED: LIVER: The liver is enlarged measuring over 20 cm in greatest length with increased echogenicity consistent with hepatic steatosis. The liver contour is normal. No focal hepatic lesion. There is no intrahepatic biliary duct dilatation seen. [facility] Medical History (Updated 02/17/25 @ 12:15 by Yuliana Junior PA-C) Asthma Surgical History History of esophagogastroduodenoscopy (EGD) Hx of colonoscopy Family History Mother HTN (hypertension) Diabetes Malignant melanoma of breast Social History Household Members: Family Housing: House Alcohol intake: never Patient Tobacco Use Status: Never used Tobacco service: Yes Current occupational status: employed Cognitive needs: No Hearing needs: No Vision needs: No Physical Exam Vital Signs: Last Vital Signs Pulse 75 01/12/25 12:11 BP 128/68 01/12/25 12:11 Pulse Ox 99 01/12/25 12:11 Oxygen Delivery Method Room Air 01/12/25 12:11 BMI result Body Mass Index 35.6 Assessment & Plan Assessment & Plan (1) Elevated LFTs: Comment: Likely due to fatty liver Code(s): R79.89 - Other specified abnormal findings of blood chemistry Category: Medical (2) Adenomatous polyps: Code(s): D36.9 - Benign neoplasm, unspecified site Category: Medical (3) Erosive esophagitis: Code(s): K22.10 - Ulcer of esophagus without bleeding Category: Medical (4) Hemorrhoids with complication: Code(s): K64.8 - Other hemorrhoids Category: Medical Plan GI clinic visit for this 48 YM with hypertension, hyperlipidemia, low back pain referred by Dr. Duncan Cruz for evaluation of elevated LFTs, GERD and to schedule a colonoscopy for colorectal cancer screening Patient denies major cardiac or pulmonary problems, and admits to obstructive sleep apnea (he was on a CPAP machine in the past) Denies having any surgeries in the past. Denies being on chronic anticoagulation. Takes Alleve occasionally fot toothache Patient denies known family history of colon polyps, colon cancer or other GI malignancies. Pt advised to follow antireflux pre-cautions and work on loosing weight. Start Famotidine 20 mg twice daily for GERD Repeat liver panel, Hepatitis serologies and abdominal US for FU of elevated LFTs 12/19/24 EGD/COLONOSCOPY: 12/19/24 EGD AND COLON SHOWED: Endoscopy Findings: ESOPHAGUS: Hiatal hernia, Erosive esophagitis (LA Grade B). STOMACH: Moderate diffuse gastritis DUODENUM: Normal Colonoscopy Findings: Four small to medium sized polyps were removed Moderate diverticulosis seen in the left colon Moderate hemorrhoids on retroflexed exam. Plan: Repeat EGD in 4 - 6 months to confirm esophagitis has healed and repeat colonoscopy in 3-5 years if polyps are adenomatous and 10 year if polyps are hyperplastic. Above findings were reviewed with the patient and relevant handouts were given and the discharge area. BIOPSIES SHOWED: A. Stomach, antrum, biopsy: Gastric antral mucosa within normal limits; negative for Helicobacter pylori, intestinal metaplasia and dysplasia. B. Colon, ascending, polypectomy: Tubular adenoma; negative for high-grade dysplasia. C. Colon, transverse, polypectomy x 2: Tubular adenoma (2); negative for high-grade dysplasia. D. Colon, sigmoid, polypectomy: Tubular adenoma; negative for high-grade dysplasia. Medications: New omeprazole 20 mg PO DAILY 90 caps 1RF 90 days K22.10 - Ulcer of esophagus without bleeding hydrocortisone 2.5% 1 appl HI BID-QID PRN 30 grams 3RF hemorrhoids 15 days K64.8 - Other hemorrhoids psyllium husk (Fiber (psyllium husk)) 0.52 grams PO BID PRN 120 caps 3RF constipation 60 days K64.8 - Other hemorrhoids Coding Level of Care Code Est Pt Level 3 (34411) Diagnoses Elevated LFTs R79.89 Adenomatous polyps D36.9 Erosive esophagitis K22.10 Hemorrhoids with complication K64.8 Time Spent (min) 18
[2025-01-12 12:11] VITALS: BP 128/68; PULSE 75; O2SAT 99; BMI 35.6
== END 2025-01-12 12:54 | disposition home or self-care (01) ==
LOC: HO.HGI 11:08
PROVIDERS: PCP Internal Medicine; Visit Provider Internal Medicine Gastroenterology
DX: R79.89 Other specified abnormal findings of blood chemistry (principal); D36.9 Benign neoplasm, unspecified site; K22.10 Ulcer of esophagus without bleeding; K64.8 Other hemorrhoids
CPT/HCPCS: 99499

== ENCOUNTER → 2025-01-23 19:30 | Outpatient (REF) | payer OTHER, SELFPAY | LOC: HO.SL 19:30 | PROVIDERS: PCP Internal Medicine; Visit Provider Internal Medicine | DX: G47.33 Obstructive sleep apnea (adult) (pediatric) (principal) | CPT/HCPCS: 95810 ==

== ENCOUNTER → 2025-01-23 20:38 | Outpatient (BNV) | payer OTHER, SELFPAY | PROVIDERS: PCP Internal Medicine; Visit Provider Internal Medicine | DX: G47.33 Obstructive sleep apnea (adult) (pediatric) (principal) | CPT/HCPCS: 95810 ==

== ENCOUNTER 2025-02-17 10:49 | Outpatient (AMB) | payer OTHER, SELFPAY ==
--- NOTE | 2025-02-17 11:00 | A.OFFVIS_ITS ---
Vital Signs 02/17/25 11:02 Height 5 ft 11 in Weight 254 lb 6 oz BMI 35.5 BP 126/78 Blood Pressure Location Rt brachial Position Sitting Pulse 84 Pulse Source Pulse Oximeter Pulse Oximetry (%) 96 Oxygen Delivery Method Room Air Intake Visit Reasons: INP-[place] Intake Note: Patient presents CUSTOMS EXAMINER [place]. Patient HST(02/23/24)/Tit(01/23/25) in chart (optimal pressure 11cm Air fit mask n20 nasal mask(Lg)). Allergies shellfish derived [SHELLFISH DERIVED] Allergy (Unknown, Verified 02/17/25 11:06) HIVES, ITCHY HPI Comments Details: 49 year old male is here for a new patient evaluation. 03/02/2024 HST c/w AHI 59.9 OAI 50.6 Lowest O2 desaturation to 50%. 01/23/2025 Titration study completed breathing and Oxygen stabilization at [id number] : start cpap at [id number], Airfit Nasal mask N20 large sized and monitor for compliance. He consistently gasps for air, snores loudly, and stops breathing per his . Today he states he feels chronically fatigued and falls asleep in a chair easily. He has gained some weight his BMI is 35.5, he is actively trying to lose 24lbs so he can go skydiving. He talks in his sleep and wakes up in the middle of the night due to grinding and clenching of the jaws he does not have a mouth gaurd and notices morning headaches occasionally. While driving back and forth to work which is a [address] he feels tired, yawns daily, never fell asleep while driving, however feels very tired. He denies RLS, spasms, cramps, numbness and or tingling. He has acid reflux, managed with famotidine and Omeprazole, he is careful about consuming acidic foods, and avoids triggers, he doesn't eat close to bedtime. He also has hemorrhoids which prolapse and is using preventative measures for pain. [facility] Medical History (Updated 02/17/25 @ 12:15 by Yuliana Junior PA-C) Asthma Surgical History History of esophagogastroduodenoscopy (EGD) Hx of colonoscopy Family History Mother HTN (hypertension) Diabetes Malignant melanoma of breast Social History Household Members: Family Housing: House Alcohol intake: never Patient Tobacco Use Status: Never used Tobacco service: Yes Current occupational status: employed Cognitive needs: No Hearing needs: No Vision needs: No Physical Exam Vital Signs: Last Vital Signs Pulse 84 02/17/25 11:02 BP 126/78 02/17/25 11:02 Pulse Ox 96 02/17/25 11:02 Oxygen Delivery Method Room Air 02/17/25 11:02 BMI result Body Mass Index 35.5 Const General: cooperative, comfortable and no acute distress Nutritional Appearance: obese (BMI 35.5) Orientation/consciousness: patient oriented x3 HEENT Face and sinus: Yes face symmetric Teeth and gingiva: other ([place] score of 2) Eyes Pupils: Equal, round and reactive pupils present Resp Effort & Inspection: normal respiratory effort and able to speak in complete sentences Neuro General: patient oriented x3 Cranial nerves: Yes Equal, round and reactive pupils present, Yes Normal accommodation reflex present, Yes Normal facial strength present, Yes Midline tongue present, Yes Ability to bilaterally rotate head present and Yes Ability to bilaterally elevate shoulders present Gait exam (Neuro): Normal gait present Motor exam (neuro): 5/5 motor strength present throughout Deep tendon reflexes (DTR's): Right triceps reflex intensity grade: 2+, Left triceps reflex intensity grade: 2+, Rt Biceps (C5, C6): 2+, Left biceps reflex intensity grade: 2+, Right brachioradialis reflex intensity grade: 2+, Left brachioradialis reflex intensity grade: 2+, Right patellar reflex intensity grade: 2+, Left patellar reflex intensity grade: 2+, Right ankle reflex intensity grade: 2+ and Left ankle reflex intensity grade: 2+ Psych Appearance: grossly normal Thought process: Normal thought process present Thought content: Normal thought content present Results Reviewed Results Reviewed: Stress Test : 12/2024 Protocol: NAVJOT Max HR: 153 BPM 87% of Pred: 174 BPM Max BP: 194/058 mmHG Max Work Load: 10.9 METS Exercise stress test exercise 9 min 30 sec of Navjot protocol achieving 87% MPHR, without anginal symptoms. with isolated PVCs and ventricular cuplet, with normotensive response to exercise, with baseline of t wave inversion lead 3, aVF, and V6 and T wave inversion in V5 in late recovery. Test reviewed with Dr. Dalton. Sleep Evaluations: 03/02/2024 HST c/w AHI 59.9 OAI 50.6 Lowest O2 desaturation to 50%. 01/23/2025 Titration study completed breathing and Oxygen stabiliation at [id number] : start cpap at [id number], Airfit Nasal mask N20 large sized and monitor for compliance. Assessment & Plan Assessment & Plan (1) Severe obstructive sleep apnea: Code(s): G47.33 - Obstructive sleep apnea (adult) (pediatric) Category: Medical (2) Obesity (BMI 35.0-39.9 without comorbidity): Code(s): E66.9 - Obesity, unspecified Category: Medical (3) Fatigue due to sleep pattern disturbance: Code(s): R53.83 - Other fatigue; G47.9 - Sleep disorder, unspecified Category: Medical (4) Low vitamin D level: Code(s): R79.89 - Other specified abnormal findings of blood chemistry Category: Medical Plan [place] titration is completed will start therapy at [id number] and N20 air fit mask sized large. Fatigue will r/o deficiencies with labs for anemia, RLS, Vitamin D is low start D supplement daily. Orders: Orders Methylmalonic Acid Today G47.9 - Sleep disorder, unspecified, R53.83 - Other fatigue Lipid Panel with Reflex Today E66.9 - Obesity, unspecified Vitamin B12 and Folate Today G47.9 - Sleep disorder, unspecified, R53.83 - Other fatigue TSH reflex Free T4 Today G47.9 - Sleep disorder, unspecified, R53.83 - Other fatigue Ferritin Today G47.9 - Sleep disorder, unspecified, R53.83 - Other fatigue Hemoglobin A1c Today E66.9 - Obesity, unspecified IRON PROFILE Today G47.9 - Sleep disorder, unspecified, R53.83 - Other fatigue Homocysteine Today G47.9 - Sleep disorder, unspecified, R53.83 - Other fatigue Medications: New cholecalciferol (vitamin D3) 50 mcg PO DAILY 30 days 30 caps 0RF low vitamin d MDD 50mcg R79.89 - Other specified abnormal findings of blood chemistry Patient Instructions: Sleep Hygiene provided: set a scheduled bedtime and wake time to help regulate the circadian rhythm and balance the release of pituitary hormones. Sleep in a dark room, temperatures below 68 degrees, and no devices n bed. Limit caffeinated products 6 hours prior to bed, and limit fluids 2-4 hours prior to bed. Gentle night yoga, diffusing essential oils, and playing soft music can be relaxing. Coding Level of Care Code Tele New Pt Level 4 (34477) Diagnoses Severe obstructive sleep apnea G47.33 Obesity (BMI 35.0-39.9 without comorbidity) E66.9 Fatigue due to sleep pattern disturbance R53.83; G47.9 Low vitamin D level R79.89 Time Spent (min) 30 Comment Evaluation Sleep Questionnaire Difficulty falling asleep: No Difficulty staying asleep?: Yes Number of arousals: 2-3 Snoring: Yes Witnessed apneas: Yes Gasping arousals: Yes Nocturia: Yes GERD: Yes Vivid dreams: No Acting out dreams: No Abnormal behavior in sleep: Yes (talking conversations) Abnormal movements in sleep: No Morning headaches: Yes Excessive daytime sleepiness: Yes Daytime naps: Yes Restless legs: No Hallucinations: No Sleep paralysis: No Drop attacks: No Sleep Study: Yes CPAP: No
[2025-02-17 11:02] VITALS: BP 126/78; PULSE 84; O2SAT 96; BMI 35.5
== END 2025-02-17 11:49 | disposition home or self-care (01) ==
LOC: HO.HSMS 10:49
PROVIDERS: PCP Internal Medicine; Visit Provider Physician Assistant Medical
DX: G47.33 Obstructive sleep apnea (adult) (pediatric) (principal); E66.9 Obesity, unspecified; R53.83 Other fatigue; G47.9 Sleep disorder, unspecified; R79.89 Other specified abnormal findings of blood chemistry
CPT/HCPCS: 99204

== ENCOUNTER → 2025-02-17 10:49 | Outpatient (BNVA) | payer OTHER, SELFPAY | PROVIDERS: PCP Internal Medicine; Visit Provider Physician Assistant Medical ==

== ENCOUNTER 2025-06-13 08:52 | Outpatient (AMB) | payer OTHER, SELFPAY ==
--- NOTE | 2025-06-13 08:53 | A.OFFPC_ITS ---
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 He reports an episode of elevated blood pressure noted during a dental visit where his blood pressure was measured to be significantly high on multiple occasions. He expresses reluctance to commence antihypertensive medication due to concerns about using chemicals and has not been prescribed any blood pressure medications at this time. He mentions having an increased awareness of his tension and anxiety during dental procedures. The patient also has a history of gastroesophageal reflux disease (GERD) for which he is taking medications like famotidine and omeprazole. He mentions experiencing heartburn and has been using these medications to manage his symptoms. He does not report any recent exacerbations of GERD symptoms during this visit. There is a mention of obstructive sleep apnea, for which he used a CPAP machine in the past. He reports snoring has returned slightly after his initial weight loss and that he has an upcoming appointment for a CPAP machine setup again. He denies experiencing excessive daytime sleepiness or other sleep disturbances. Additionally, the patient notes noticing leg swelling, which he attributes to prolonged periods of sitting due to his work and commute. He does not report any associated pain or skin changes. There is acknowledgement that keeping legs elevated and wearing compression stockings may help with swelling. Medical History: - Gastroesophageal Reflux Disease (GERD) - Obstructive Sleep Apnea Surgical History: - None reported Medications: - Famotidine: For management of Gastroes ophageal Reflux Disease (GERD) - Omeprazole: For management of Gastroes ophageal Reflux Disease (GERD) - Phentermine: Prescribed for weight los s - Cholecalciferol (Vitamin D) Family History: - Mother with Diabetes Mellitus - Mother with Breast Cancer - Recent colonoscopy three to four month s ago with a recommendation for follow- up in three years (potential shorter interval as per subsequent recommendations) - Referral for repeat Esophagogastroduod enoscopy (EGD) to evaluate for GERD- related symptoms [facility] Medical History (Updated 06/13/25 @ 09:36 by Peter Decker MD) Asthma Surgical History (Updated 06/12/25 @ 15:48 by Joselin Persaud) History of esophagogastroduodenoscopy (EGD) Hx of colonoscopy (~12/19/24) Family History Mother HTN (hypertension) Diabetes Malignant melanoma of breast Social History Household Members: Family Housing: House Alcohol intake: never Patient Tobacco Use Status: Never used Tobacco e-Cigarette/Vaping Use: Never Used service: Yes Current occupational status: employed Cognitive needs: No Hearing needs: No Vision needs: No Questionnaire PHQ-9 Over the last 2 weeks, how often have you been bothered by any of the following problems? 1. Little interest or pleasure in doing things: not at all 2. Feeling down, depressed, or hopeless: not at all 3. Trouble falling or staying asleep, or sleeping too much: not at all 4. Feeling tired or having little energy: several days 5. Poor appetite or overeating: not at all 6. Feeling bad about yourself - or that you are a failure or have let yourself or your family down: not at all 7. Trouble concentrating on things, such as reading the newspaper or watching television: not at all 8. Moving or speaking so slowly that other people could have noticed. Or the opposite - being so fidgety or restless that you have been moving around a lot more than usual: not at all 9. Thoughts that you would be better off or of hurting yourself in some way: not at all Total score: 1 Depression Screening Interpretation: Negative Depression Screening Done: Yes 52990 - PHQ-9 Billing: Yes Source: Developed by Drs. Ananda Hansen, Cherelle Sloan, Abel Wright and colleagues, with an educational ubaldo from [employer]. Thrive Questionnaire Date Thrive assessed: 01/06/25 AUDIT C Alcohol Use Questionnaire (AUDIT-C) 1. How often do you have a drink containing alcohol?: Never Total Score: 0 Score Reviewed/Action Taken: Yes ULI-7 AMB Questionnaire ULI-7 Date ULI - 7 assessed: 01/06/25 Feeling nervous, anxious, or on edge: 0 = Not at all Not being able to stop or control worryin = Not at all Worrying too much about different things: 0 = Not at all Trouble relaxin = Not at all Being so restless that it is hard to sit still: 0 = Not at all Becoming easily annoyed or irritable: 0 = Not at all Feeling afraid as if something awful might happen: 0 = Not at all Total ULI-7 score (0-4 normal; 5-9 mild; 10-14 moderate; 15-21 severe): 0 Source: Developed by Drs. Ananda Hansen, Cherelle Sloan, Abel Wright and colleagues, with an educational ubaldo from [employer]. ULI-7 Assessment Billing ULI-7 Assessment Tool: ULI-7 Assessment 99322 Review of Systems Const Details: - Cardiovascular: Denies chest pain, shortness of breath; mentions leg swelling - Respiratory: Reports snoring returned with mild obstructive sleep apnea symptoms - Gastrointestinal: Reports heartburn - Neurological: No headaches reported - Psychiatric: Denies anxiety, depression, and recent mood changes - Musculoskeletal: Denies joint pain but reports leg swelling All systems reviewed & are unremarkable except as noted in HPI and below Physical exam (Primary Care) Vital Signs: Last Vital Signs Temp 98.3 F 06/13/25 08:54 Pulse 86 06/13/25 08:54 Resp 17 06/13/25 08:54 BP 136/86 06/13/25 08:54 Pulse Ox 95 06/13/25 08:54 Oxygen Delivery Method Room Air 06/13/25 08:54 BMI result Body Mass Index 35.0 BMI Assessment/Plan discussion: High Tobacco/Smoking Status: Tobacco use Status Tobacco use date assessed 01/06/25 06/13/25 08:55 Patient Tobacco Use Status Never used Tobacco 06/13/25 08:55 e-Cigarette/Vaping Use Never Used 06/13/25 08:55 Depression Screening Interpretation: Negative Thrive Assessment: Date of Thrive Assessment Date Thrive assessed 01/06/25 06/13/25 08:55 Const Other: General: +Alert and oriented, Well nourished, No acute distress. Eye: Pupils are equal, round and reactive to light, Intact accommodation, Extraocular movements are intact, Normal conjunctiva, Vision unchanged. HENT: Normocephalic, Atraumatic, Tympanic membranes are clear, Normal hearing, Oral mucosa is moist, No pharyngeal erythema, Ear canals patent. Respiratory: Lungs CTA bilaterally, No wheeze, Respirations are non-labored. Cardiovascular: Regular rate, Regular rhythm, S1 auscultated, S2 auscultated, No murmur, Good pulses equal in all extremities, Normal peripheral perfusion, No edema. Gastrointestinal: Soft, Non-tender, Non-distended, Normal bowel sounds, No organomegaly. Musculoskeletal: Normal range of motion, Normal strength, No tenderness, No swelling, No deformity, Normal gait. Integumentary: Warm, Dry, [place], Intact. Neurologic: Alert, Oriented, Normal sensory, Normal motor function, No focal defects, Cranial Nerves II-XII are grossly intact, Normal deep tendon reflexes. Psychiatric: Cooperative, Appropriate mood & affect, Normal judgment. Coding Level of Care Code New Pt Level 4 (02775) Complex EM visit Add On G2211 Diagnoses Hypertension I10 Obstructive sleep apnea G47.33 Elevated LFTs R79.89 Abnormal CBC R79.89 Erosive esophagitis K22.10 Additional Codes PHQ-9 - 58300 - PHQ-9 Billing: Yes ([id number]) ULI-7 Assessment Billing - ULI-7 Assessment Tool: ULI-7 Assessment 27817 ([id number]) Time Spent (min) 45 Assessment & Plan Assessment & Plan (1) Hypertension: Comment: - Pressures elevated at dentist appointment however WNL in clinic today - Evaluate blood pressure measurements at home regularly. - Patient is advised to bring results on next visit. - Initiate treatment if sustained elevation persists. Code(s): I10 - Essential (primary) hypertension Category: Medical Plan: - Monitor home blood pressure measurements. - Consider antihypertensive medication upon consistently high readings. (2) Obstructive sleep apnea: Comment: - Been on CPAP for multiple years with good compliance Code(s): G47.33 - Obstructive sleep apnea (adult) (pediatric) Category: Medical Plan: - Continue CPAP QHS (3) Elevated LFTs: Comment: Likely due to fatty liver, given normal Hepatitis Panel and other work up so far. Discussed with patient about weight loss and will continue to monitor LFT's Code(s): R79.89 - Other specified abnormal findings of blood chemistry Category: Medical Plan: - Continue to Monitor (4) Abnormal CBC: Comment: - Persistent Microcytosis with normal HB. Code(s): R79.89 - Other specified abnormal findings of blood chemistry Category: Medical Plan: Obtain Liver Panel (5) Erosive esophagitis: Comment: Seen on EGD and currently following with GI, and being treated with omeprazole famotidine and patient reports good symptom control Code(s): K22.10 - Ulcer of esophagus without bleeding Category: Medical Plan: Follow-up with GI Continue omeprazole and famotidine Repeat EGD in 2 months Plan During the visit, I explained to the patient the possible need for medical treatment for hypertension if home blood pressure readings remain elevated. We also discussed the management of GERD with prescribed medications, emphasizing the importance of adherence to medication to control symptoms. I advised the continuation of lifestyle modifications for potential weight loss and management of obstructive sleep apnea symptoms. Additionally, we discussed the potential risks related to family history, concretely the high blood pressure implications and risks associated with diabetes and cancer. Plans were made for follow-ups with necessary specialists as currently indicated. Orders: Orders Complete Blood Count Auto Diff Today I10 - Essential (primary) hypertension Hemoglobin A1c Today I10 - Essential (primary) hypertension Lipid Panel Today I10 - Essential (primary) hypertension TSH reflex Free T4 Today I10 - Essential (primary) hypertension Syphilis Screen Today I10 - Essential (primary) hypertension Vitamin D 25-OH Total Today I10 - Essential (primary) hypertension Comprehensive Met. Panel Today I10 - Essential (primary) hypertension HIV Ab/Ag Today I10 - Essential (primary) hypertension IRON PROFILE Today R79.89 - Other specified abnormal findings of blood chemistry Patient Instructions: - Monitor blood pressure at home daily and record the results. - Continue taking famotidine and omeprazole as prescribed. - Follow up with CPAP appointment. - Elevate legs and consider compression stockings for leg swelling. - Keep scheduled appointments with gastroenterology for further evaluation. - Return for follow-up in one month with recorded blood pressures. - Maintain a healthy lifestyle, including diet and exercise.
[2025-06-13 08:54] VITALS: BP 136/86; PULSE 86; RESP 17; TEMP 36.8; O2SAT 95; BMI 35.0
== END 2025-06-13 10:05 | disposition home or self-care (01) ==
LOC: HO.HMCHD 08:53
PROVIDERS: PCP Student in an Organized Health Care Education/Training Program; Visit Provider Student in an Organized Health Care Education/Training Program
DX: I10 Essential (primary) hypertension (principal); G47.33 Obstructive sleep apnea (adult) (pediatric); R79.89 Other specified abnormal findings of blood chemistry; K22.10 Ulcer of esophagus without bleeding

== ENCOUNTER 2025-06-13 09:38 | Outpatient (REF) | payer OTHER, SELFPAY ==
[2025-06-13 11:18] LABS: MANUAL DIFF FLAG NO
[2025-06-13 11:21] LABS: Hematocrit 48.9 % (42.0-52.0); Hemoglobin 15.6 g/dl (14.0-18.0); Imm Gran Abs Auto 0.01 X10*3/uL (0.00-0.03); Imm Gran Pct Auto 0.2 % (0.0-0.4); Lymphocytes Absolute Auto 2.9 X10*3/uL (1.2-4.9); Mean Corpuscular HGB Conc 31.9 g/dl (31.0-36.0); Mean Corpuscular Hemoglobin 25.2 pg (27.0-33.0); Mean Corpuscular Volume 78.9 fL (80.0-98.0); NRBC Abs Auto 0.000 X10*3/uL (0.0-0.012); NRBC Pct Auto 0.0 /100WBC (0.0-0.2); Platelet Count 196 X10*3/uL (160-400); Red Blood Count 6.20 X10*6/uL (4.60-5.80); White Blood Count 6.2 X10*3/uL (4.8-10.8)
[2025-06-13 11:38] LABS: Alanine Aminotransferase 76 U/L (0-40); Albumin Level 4.6 g/dL (3.5-5.0); Alkaline Phosphatase 85 U/L (39-117); Anion Gap 11 (12-20); Aspartate Amino Transferase 40 U/L (5-37); Blood Urea Nitrogen 16 mg/dL (9-16); Calcium 9.0 mg/dL (8.4-10.2); Carbon Dioxide 28 mmol/L (22-29); Chloride 108 mmol/L (96-108); Cholesterol 219 mg/dL (<200); Estimated Glomerular Filt Rate > 60; HDL Cholesterol 35 mg/dL (>40); Iron 89 mcg/dL (45-160); Percent Iron Saturation 25 % (15-50); Potassium 3.9 mmol/L (3.3-5.1); Sodium 143 mmol/L (135-145); Total Iron Binding Capacity 350 mcg/dL (228-428); Total Protein 7.4 g/dL (6.5-8.0); Triglycerides 179 mg/dL (<150); Unsaturated Iron Binding 261 ug/dL
[2025-06-13 11:59] LABS: Syphilis Screen Nonreactive (Nonreactive)
[2025-06-13 12:34] LABS: HIV Num 1 0.06 S/CO (0.00-0.99)
== END 2025-06-13 09:39 | disposition home or self-care (01) ==
LOC: HO.10HDL 09:38
PROVIDERS: Visit Provider Student in an Organized Health Care Education/Training Program
DX: I10 Essential (primary) hypertension (principal); K22.10 Ulcer of esophagus without bleeding; G47.33 Obstructive sleep apnea (adult) (pediatric); R79.89 Other specified abnormal findings of blood chemistry
CPT/HCPCS: 36415; 80053; 80061; 82306; 83036; 83540; 84443; 85025; 86780; 87389; 96127

== ENCOUNTER 2025-07-19 09:30 | Outpatient (AMB) | payer OTHER, SELFPAY ==
--- NOTE | 2025-07-19 08:59 | MHC.PC.OV ---
Vital Signs 07/19/25 09:37 Height 5 ft 11 in Weight 249 lb BMI 34.7 BP 130/82 Blood Pressure Location Lt brachial Position Sitting Respiration 18 Pulse 95 Pulse Source Pulse Oximeter Temp 97.4 F Temp Source Temporal Artery Scan Pulse Oximetry (%) 95 Oxygen Delivery Method Room Air Intake Visit Reasons: 1 month f/u bp ck Diet Tech Required: No Accompanied by: Self / Same As Patient Allergies shellfish derived (SHELLFISH DERIVED) Allergy (Unknown, Verified 07/19/25 08:59) HIVES, ITCHY Medication List - Last Reconciled 07/19/25 by Peter Decker MD atorvastatin (Lipitor) 20 mg PO BEDTIME cholecalciferol (vitamin D3) 50 mcg PO DAILY famotidine 20 mg PO BID 90 days omeprazole 20 mg PO DAILY 90 days Tobacco use date assessed: 01/06/25 Dental Screening Dental Screen Date: 07/19/25 Did you have a dental visit in the last 12 months?: Yes Did you have a dental problem in the last 6 months where you did not have access to dental care?: No Was dental information given to patient?: Patient has dentist HPI HPI Comments History of Present Illness Details The patient is a 49-year-old male presenting for health maintenance and the management of several chronic conditions. Prediabetes was noted based on a hemoglobin A1c of 6.3%, indicating the need for improved glycemic control. The patient has been advised on dietary modifications, including reducing sugar intake, to manage this condition. Fatty Liver Disease had been previously diagnosed through imaging studies. The patient acknowledged that liver enzymes remain elevated and has been monitoring this condition. Previous discussions confirmed a diagnosis of fatty liver, and the need for dietary changes to mitigate the condition was emphasized. Hyperlipidemia requires ongoing management. Despite previously delayed treatment owing to liver enzyme levels, starting statin therapy was discussed. The patient has been monitoring weight loss and dietary adjustments, which could impact cholesterol levels. The patient has a known history of Obstructive Sleep Apnea for which CPAP therapy is being utilized. Compliance with CPAP has reportedly been consistent, with improvements in related symptoms like daytime fatigue. Concerns regarding hypertension were addressed during this visit. The patient's blood pressure readings were well-controlled, negating the immediate need for antihypertensive medication. Gastroesophageal Reflux Disease is managed with the use of omeprazole and famotidine. No exacerbations or additional symptoms were reported during this session. The patient has been engaged in weight management activities, with noted weight loss achieved and documented on home scales. 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 - Consistently uses CPAP device for Obstructive Sleep Apnea - Engages in dietary adjustments aiming at healthier nutritional intake, avoiding sodas and sweets, increased water consumption - Actively monitoring weight and using digital scale appliances linked to phone apps for tracking health metrics [facility] Medical History (Updated 07/19/25 @ 09:59 by Peter Decker MD) Prediabetes Asthma Surgical History (Updated 06/12/25 @ 15:48 by Joselin Persaud) History of esophagogastroduodenoscopy (EGD) Hx of colonoscopy (~12/19/24) Family History Mother HTN (hypertension) Diabetes Malignant melanoma of breast Social History Household Members: Family Housing: House Alcohol intake: never Patient Tobacco Use Status: Never used Tobacco e-Cigarette/Vaping Use: Never Used service: Yes Current occupational status: employed Current occupation: [employer] Cognitive needs: No Hearing needs: No Vision needs: No Questionnaire Thrive Questionnaire Date Thrive assessed: 01/06/25 ULI-7 AMB Questionnaire ULI-7 Date ULI - 7 assessed: 01/06/25 Source: Developed by Drs. Ananda Hansen, Cherelle Sloan, Abel Wright and colleagues, with an educational ubaldo from [employer]. Review of Systems Const Details: - Cardiovascular: Denies symptoms; reported good blood pressure control - Gastrointestinal: Denies exacerbation of acid reflux symptoms - General: Reports feeling good overall and actively engaging in dietary changes to improve health - Respiratory: Denies issues beyond managing Obstructive Sleep Apnea with CPAP All systems reviewed & are unremarkable except as reviewed in HPI and above Physical exam (Primary Care) Vital Signs: Last Vital Signs Temp 97.4 F 10/01/25 09:37 Pulse 95 07/19/25 09:37 Resp 18 07/19/25 09:37 BP 130/82 07/19/25 09:37 Pulse Ox 95 07/19/25 09:37 Oxygen Delivery Method Room Air 07/19/25 09:37 BMI result Body Mass Index 34.7 Tobacco/Smoking Status: Tobacco use Status Tobacco use date assessed 01/06/25 07/19/25 09:00 Patient Tobacco Use Status Never used Tobacco 07/19/25 09:00 e-Cigarette/Vaping Use Never Used 07/19/25 09:00 Thrive Assessment: Date of Thrive Assessment Date Thrive assessed 01/06/25 07/19/25 09:00 Const Other: General: +Alert and oriented, Well nourished, No acute distress. Eye: Pupils are equal, round and reactive to light, Intact accommodation, Extraocular movements are intact, Normal conjunctiva, Vision unchanged. HENT: Normocephalic, Atraumatic, Tympanic membranes are clear, Normal hearing, Oral mucosa is moist, No pharyngeal erythema, Ear canals patent. Respiratory: Lungs CTA bilaterally, No wheeze, Respirations are non-labored. Cardiovascular: Regular rate, Regular rhythm, S1 auscultated, S2 auscultated, No murmur, Good pulses equal in all extremities, Normal peripheral perfusion, No edema. Gastrointestinal: Soft, Non-tender, Non-distended, Normal bowel sounds, No organomegaly. Musculoskeletal: Normal range of motion, Normal strength, No tenderness, No swelling, No deformity, Normal gait. Integumentary: Warm, Dry, [place], Intact. Neurologic: Alert, Oriented, Normal sensory, Normal motor function, No focal defects, Cranial Nerves II-XII are grossly intact, Normal deep tendon reflexes. Psychiatric: Cooperative, Appropriate mood & affect, Normal judgment. Coding Level of Care Code Est Pt Level 4 (56748) Complex EM visit Add On G2211 Diagnoses Hypertension, unspecified type I10 Hypertension type: unspecified Hypercholesterolemia E78.00 Erosive esophagitis K22.10 Elevated LFTs R79.89 Obstructive sleep apnea G47.33 Prediabetes R73.03 Assessment & Plan Assessment & Plan (1) Hypertension: Comment: - Blood pressure is currently well managed, no medication required at this time. - Continue self-monitoring of blood pressure at home. Code(s): I10 - Essential (primary) hypertension Category: Medical Qualifiers: Hypertension type: unspecified Qualified Code(s): I10 - Essential (primary) hypertension (2) Hypercholesterolemia: Comment: - Due to persistently high cholesterol levels, initiation of statin therapy (20 mg at bedtime) was planned. - The patient was advised regarding potential benefits and to monitor for any adverse effects. Code(s): E78.00 - Pure hypercholesterolemia, unspecified Category: Medical (3) Erosive esophagitis: Comment: Seen on EGD and currently following with GI, and being treated with omeprazole famotidine and patient reports good symptom control Code(s): K22.10 - Ulcer of esophagus without bleeding Category: Medical (4) Elevated LFTs: Comment: - Underlying liver enzyme elevation with Ultrasound findings suggests ongoing fatty infiltration. - Recommending dietary changes focusing on weight reduction and monitoring liver function tests. Code(s): R79.89 - Other specified abnormal findings of blood chemistry Category: Medical (5) Obstructive sleep apnea: Comment: - Continued effective use of CPAP is essential; encouraged compliance confirming daily use. - Discuss potential complications if therapy is not adhered, including cardiovascular risks. Code(s): G47.33 - Obstructive sleep apnea (adult) (pediatric) Category: Medical (6) Prediabetes: Comment: - Hemoglobin A1c is elevated at 6.3%. The patient was advised to maintain dietary changes to enhance glycemic control. - Continue monitoring blood glucose and follow up on dietary adherence. Code(s): R73.03 - Prediabetes Category: Medical Plan: Health maintenance: - Reviewed benefits of weight management and dietary change emphasizing hydration - Emphasized importance of adequate sleep and CPAP use for health maintenance - Discussed initiation and compliance with statin therapy for prevention of cardiovascular events Patient was informed and verbally consented to the use of an ambient scribe for clinic note documentation during this visit. Plan During this visit, I thoroughly discussed with the patient his current health status and management plans for various chronic conditions. Advised on discontinuing Phentermine due to potential risks and initiated statin therapy for hyperlipidemia management. The importance of compliance with CPAP therapy was underscored, explaining how it benefits overall cardiovascular health and prevents complications associated with obstructive sleep apnea. Discussed dietary modifications, emphasized substantial lifestyle changes including weight monitoring strategies. The plan for follow-up in six months was agreed upon to reassess his condition and effectiveness of therapy. Finally, encouraged the continuation of the current management plan for Gastroesophageal Reflux Disease, with routine monitoring of symptoms. Medications: New atorvastatin (Lipitor) 20 mg PO BEDTIME 90 tabs 3RF Discontinued phentermine must administer 30 minutes before or 1-2 hours after breakfast Discontinued Reason: Duplicate 37.5 mg PO DAILY 30 caps 1RF E66.9 - Obesity, unspecified Patient Instructions: - Continue CPAP use every night for Obstructive Sleep Apnea. - Take the prescribed statin medication 20 mg at bedtime exactly as instructed. - Discontinue the use of Phentermine immediately. - Maintain dietary changes, avoid sodas and sweets, focus on weight management, and stay hydrated. - Monitor blood sugar levels and report significant changes or symptoms to us. - Plan to return for a follow-up visit in six months to review treatment progress. - Contact our office should you have any concerns or changes in health status.
[2025-07-19 09:37] VITALS: BP 130/82; PULSE 95; RESP 18; TEMP 36.3; O2SAT 95; BMI 34.7
== END 2025-07-19 09:59 | disposition home or self-care (01) ==
LOC: HO.HMCHD 09:30
PROVIDERS: PCP Student in an Organized Health Care Education/Training Program; Visit Provider Student in an Organized Health Care Education/Training Program
DX: I10 Essential (primary) hypertension (principal); E78.00 Pure hypercholesterolemia, unspecified; K22.10 Ulcer of esophagus without bleeding; R79.89 Other specified abnormal findings of blood chemistry; G47.33 Obstructive sleep apnea (adult) (pediatric); R73.03 Prediabetes

== ENCOUNTER 2025-08-18 09:44 | Day surgery (SDC) | payer OTHER, SELFPAY ==
--- NOTE | 2025-08-15 15:22 | HO.ANESPROP2 ---
Documented by User: Betina Deluna NP 08/16/25 11:40 HPI - Anesthesia Eval Consult details Narrative: 49 yr old male for upper endoscopy scheduled 08/18/25 [place]: using CPAP PMFSH Active Problems Active Problems: All Active Problems (Updated 07/19/25 @ 09:59 by Peter Decker MD) Prediabetes (Acute) Low vitamin D level (Acute) Fatigue due to sleep pattern disturbance (Acute) Hemorrhoids with complication (Acute) Erosive esophagitis (Acute) Adenomatous polyps (Acute) Obesity (BMI 35.0-39.9 without comorbidity) (Acute) Weight gain (Acute) Severe obstructive sleep apnea (Acute) Abnormal CBC (Acute) Colon cancer screening (Acute) Elevated LFTs (Acute) Chronic kidney disease, stage 1 (Acute) Obstructive sleep apnea (Acute) Low back pain (Acute) Tenosynovitis of left hand (Acute) Tenosynovitis of right hand (Acute) Hypercholesterolemia (Acute) Hypertension (Acute) Past Medical History Medical History Fatty liver Back pain Elevated cholesterol HTN (hypertension) [place] (obstructive sleep apnea) Erosive esophagitis Prediabetes Asthma Family History Family History Mother HTN (hypertension) Diabetes Malignant melanoma of breast Surgical History Surgical History History of esophagogastroduodenoscopy (EGD) Hx of colonoscopy (~12/19/24) History of Problems with Anesthesia: No Social History Social History Household Members: Family Housing: House Alcohol intake: never Patient Tobacco Use Status: Never used Tobacco e-Cigarette/Vaping Use: Never Used Use of substances other than those prescribed or required for medical reasons: No Are you DNR?: No Advance Directives: No Advance Directives Information Provided: Yes service: Yes Current occupational status: employed Current occupation: [employer] Cognitive needs: No Hearing needs: No Vision needs: No Meds Allergies Allergy/AdvReac Type Severity Reaction Status Date / Time shellfish derived (SHELLFISH Allergy Intermediate HIVES, Verified 08/16/25 13:54 DERIVED) ITCHING Exam Pertinent Lab Results Pertinent Lab Results: Laboratory Tests 06/13/25 09:43 WBC 6.2 RBC 6.20 H Hgb 15.6 Hct 48.9 Plt Count 196 Sodium 143 Potassium 3.9 BUN 16 Creatinine 1.26 Assessment and Plan Final Anesthetic Review History of Problems with Anesthesia: No Documented by User: Kristi Vidal MD 08/18/25 11:47 PMFSH Past Medical History Medical History Fatty liver Back pain Elevated cholesterol HTN (hypertension) [place] (obstructive sleep apnea) Erosive esophagitis Prediabetes Asthma Family History Family History Mother HTN (hypertension) Diabetes Malignant melanoma of breast Surgical History Surgical History History of esophagogastroduodenoscopy (EGD) Hx of colonoscopy (~12/19/24) Social History Social History Household Members: Family Housing: House Alcohol intake: never Patient Tobacco Use Status: Never used Tobacco e-Cigarette/Vaping Use: Never Used Use of substances other than those prescribed or required for medical reasons: No Are you DNR?: No Advance Directives: No Advance Directives Information Provided: Yes service: Yes Current occupational status: employed Current occupation: [employer] Cognitive needs: No Hearing needs: No Vision needs: No Meds Allergies Allergy/AdvReac Type Severity Reaction Status Date / Time shellfish derived (SHELLFISH Allergy Intermediate HIVES, Verified 08/16/25 13:54 DERIVED) ITCHING Exam Airway Mallampati Class: III TM Dist: >3cm Neck ROM: Full Loose/Missing/Broken Teeth: Yes (broken upper central incisor) Heart: RRR Lungs: CTA Assessment and Plan Assessment Anesthesia Assessment: Anesthesia Plan Discussed and Chart Reviewed Final Anesthetic Review NPO: Yes ASA Class: III Final Preanesthetic Review: Meds/Allgs Chart Reviewed, Consent Obtained/Reviewed and Anes Risks/Benef Reviewed Patient Risk: Intermediate Procedure Risk: Intermediate Anesthetic Plan Anesthetic Plan: MAC: Disposition: Standard PACU
[2025-08-16 13:57] VITALS: BMI 34.7
--- NOTE | 2025-08-18 09:14 | MHC.SHP ---
Pre-Procedural Eval Section A - 24 Hr Update-Section A only Date of Service: 08/18/25 The patient is an INPATIENT: No The patient has been examined within 24 hours of the surgical procedure. The History & Physical has been completed within 30 days and I have reviewed it.: No Section B - Complete if H&P > 30 days Chief Complaint: Ulcer of esophagus without bleeding Relevant Family History (Specify if Yes): No Relevant Social History: None Present Medications: see Short Stay Collaborative assessment Medical History: Significant History (Asthma, erosive esophagitis, obesity, hypertension, sleep apnea) History of Previous Operations: Relevant previous surgery/procedure and date(s) (History of esophagogastroduodenoscopy (EGD) Hx of colonoscopy) Allergies: Allergies Allergy/AdvReac Type Severity Reaction Status Date / Time shellfish derived (SHELLFISH Allergy Intermediate HIVES, Verified 08/16/25 13:54 DERIVED) ITCHING Review of Systems Sugical H&P ROS: Negative: Constitution, Cardiovascular and Respiratory and Yes, Specify: Gastrointestinal (GERD) Exam Surgical H&P Exam: Normal: Heart, Normal: Lungs, Normal: Extremities and Normal: Abdomen Plan Diagnosis/Plan: Unchanged I have reviewed the history and physical and performed a pertinent physical examination on my patient. No changes have occurred unless specified. Time Spent With Patient Time: Total time managing care of this patient today ____ minutes.
[2025-08-18 09:56] VITALS: BMI 34.5
[2025-08-18 10:04] VITALS: BP 127/83; PULSE 75; RESP 18; TEMP 36.5; O2SAT 97
[2025-08-18] MEDS: Lactated Ringers 1,000 ML 100 ML IVCONT (10:19)
--- NOTE | 2025-08-18 12:17 | W.PM.OPN ---
Operative Note Operative Note Date of Service: 08/18/25 Narrative: FLEXIBLE TRANSORAL UPPER GASTROINTESTINAL ENDOSCOPY WITH BIOPSIES Pre-op diagnosis: GERD, FU of erosive esophagitis Post-op diagnosis: GERD, hiatal hernia, Gastritis, duodenal nodule Endoscopist:? Tong Moe MD Anesthesia:?MAC UPPER ENDOSCOPY Consent: Indications for the procedure and potential complications of bleeding, perforation, reaction to medications and missed diagnosis were discussed with the patient and informed consent was obtained. Instrument: Olympus GIF H 190 mid size upper endoscope Monitoring: Vital signs and clinical assessment, continuous EKG monitoring, Pulse oximetry, Carbon Dioxide monitoring and blood pressure monitoring were done throughout the procedure. Procedure: The patient was placed in the left lateral decubitis position and pre-procedure medications were administered and a bite block was placed. The endoscope was inserted into the mouth and advanced under direct vision to the third part of duodenum. A careful inspection was made as the upper endoscope was withdrawn including a retroflexed examination of the proximal stomach; Findings and interventions are described below. Findings: Larynx: Normal Esophagus: GE junction at 38 cms, small hiatal hernia 38 to 40 cms. Mildly tortuous esophagus without stricture or ring. Esophagitis seen on past EGD has healed Irregular Z-line - biopsies were obtained from the GE junction to rule out Barretts esophagus. Stomach: Moderate diffuse gastric erythema. Biopsies obtained during past EGD were negative for Helicobacter pylori or intestinal metaplasia Grade 2 flap valve on retroflexed examination of the cardia. Duodenum: A few 5 to 8 mm benign appearing nodule in the proximal bulb - just distal to the pylorus - biopsies were obtained. Intervention: Biopsies as noted above Impression and Post Procedure Diagnosis: Endoscopy Findings: ESOPHAGUS: Small hiatal hernia, esophagitis seen on past EGD has healed. Biopsies obtained from GE junction to rule out Barretts. STOMACH: Moderate gastritis DUODENUM: Benign-appearing nodule in the proximal bulb Plan: I will contact him with biopsy results. Pt has a FU appointment on 11/09/[address] Moe. Patient was advised to continue taking omeprazole 20 mg once a day. Above findings were reviewed with the patient and relevant handouts were given and the discharge area.
[2025-08-18 12:20] VITALS: BP 109/70; PULSE 78; RESP 16; TEMP 36.3; O2SAT 98
[2025-08-18 12:35] VITALS: BP 122/77; PULSE 81; RESP 20; TEMP 36.1; O2SAT 99
== END 2025-08-18 13:11 | disposition home or self-care (01) ==
PROVIDERS: PCP Student in an Organized Health Care Education/Training Program; Visit Provider Internal Medicine Gastroenterology
PROC: 0DJ08ZZ Inspection of Upper Intestinal Tract, Via Natural or Artificial Opening Endoscopic (ICD-10-PCS; CPT 43235; principal; 2025-08-18 11:10)
DX: K21.9 Gastro-esophageal reflux disease without esophagitis (principal); K44.9 Diaphragmatic hernia without obstruction or gangrene; K29.70 Gastritis, unspecified, without bleeding
CPT/HCPCS: 43239; 88305; 88313; 88342; J2704

== ENCOUNTER → 2025-08-18 09:44 | Outpatient (BNV) | payer OTHER, SELFPAY | PROVIDERS: PCP Student in an Organized Health Care Education/Training Program; Visit Provider Internal Medicine Gastroenterology | DX: K21.9 Gastro-esophageal reflux disease without esophagitis (principal); K29.70 Gastritis, unspecified, without bleeding; K31.7 Polyp of stomach and duodenum | CPT/HCPCS: 43239 ==